=== PATIENT | male | born 2005 | race Caucasian/White ===

== ENCOUNTER → 2024-10-31 12:37 | Outpatient (REF) | payer OTHER, SELFPAY ==
--- NOTE | 2024-10-31 12:43 | CA_ITS ---
Transthoracic Echocardiogram Patient (Last, First, Middle): Bean Hou, Gender: Male Date of : 2005 Age: 19 Procedure Date: 10/31/2024 Procedure Type: Transthoracic Echocardiogram Location: OP Height: 180.34 cm Weight: 80.74 kg BSA: 2.01 m2 Heart Rate: bpm BP: 122 / 80 mmHg Nail Maker: JENS Referring MD: Sylvia Dockery MD Symptoms: R07.9 CHESTPAIN R55 SYNCOPE COLLAPSE Study Quality: Adequate with contrast ECG Rhythm: Sinus Conclusions: - The left ventricular systolic function is normal. The calculated ejection fraction is 60% by biplane method. - No obvious valvular pathology seen on this study. Findings Procedure Information Contrast agent, definity, is being given per protocol without apparent complications. Left Ventricle Normal left ventricular cavity size. There is normal left ventricular wall thickness. The left ventricular systolic function is normal. The calculated ejection fraction is 60% by biplane method. There is no evidence of regional wall motion abnormalities. Diastolic function is normal for age. Right Ventricle Normal right ventricular cavity size and systolic function. Atria The left atrium is mildly dilated. The right atrium is normal in size. Aortic Valve There is a normal trileaflet aortic valve. There is no aortic valve stenosis. There is no aortic valve regurgitation. Mitral Valve The mitral valve appears normal. There is trace mitral valve regurgitation. There is no mitral valve stenosis. Pulmonic Valve There is trace to mild pulmonic valve regurgitation. Tricuspid Valve There is trace tricuspid valve regurgitation. There is no evidence of pulmonary hypertension. Great Vessels The asc aorta is normal in size. Venous The inferior vena cava is mildly dilated and collapses greater than 50% with inspiration. Pericardium/Pleural There is no evidence of pericardial effusion. Prior Study Comparison No prior study available for comparison. Recommendations, Care & Conclusions No obvious valvular pathology seen on this study. Measurements 2D Linear Measurements IVSd: 0.79 0.6-0.9/0.6-1.0 cm LVIDd: 5.59 3.9-5.3/4.2-5.9 cm LVIDd Index: 2.78 2.4-3.2/2.2-3.1 cm/m2 LVIDs: 3.59 2.0-3.6 cm LVPWd: 0.87 0.7-1.1 cm LA Diam: 3.60 2.7-3.8/3.0-4.0 cm LAIDs Index: 1.79 1.5-2.3 cm/m2 LV Mass: 214.66 67-162/88-224 g LV Mass Index: 106.79 43-95/49-115 g/m2 LVOT Diam: 2.20 3.0+(-)1.3 cm 2D Systolic Function EF 4C: 57.60 >55% EF 2C: 63.50 >55% EF BiP: 59.90 >55% Mitral Valve MV Pk E: 1.09 MV PK A: 0.50 MV Decel Time: 248.00 E/A: 2.20 E'Lateral: 16.20 E'Medial: 10.80 E/E' Med: 10.10 E/E' Lat: 6.70 PHT: 73.00 MVA PHT: 3.01 Decel [place]: 4.39 Aortic Valve AoV Pk Henry: 1.51 AoV Mn Henry: 1.02 AoV VTI: 0.39 AoV Pk Grad: 9.00 Aov Mn Grad: 5.00 CAROL ANN Cont.VTI: 2.65 LVOT LVOT Pk Henry: 1.21 LVOT Mn Henry: 0.77 LVOT VTI: 0.27 LVOT Pk Grad: 6.00 LVOT Mn Grad: 3.00 LVOT Diam: 2.20 LVOT Area: 3.80 Diastolic Function MV Pk E: 1.09 MV Pk A: 0.50 E/A: 2.20 E'Medial: 10.80 E/E' Med: 10.10 E' Laterial: 16.20 E/E' Lat: 6.70 Right Ventricle TAPSE (mm): 31.60 TVS' Henry: 14.60 Tricuspid Valve TR Pk Henry: 1.90 TR Pk Grad: 14.00 RA Press: 3.00 RVSP: 17.00 Great Vessels Aorta Sinus of Valsalva: 3.18 2.0-3.[address] [place]: 2.23 1.7-3.4 cm Ao Asc: 2.80 2.1-3.4 cm Ao Arch: 2.20 Updated in Other Vendor System with Status of Final Papito Rosenthal MD electronically signed on 10/31/2024 3:23:03 PM with status of Final
== END ==
LOC: HO.CARD 12:37
PROVIDERS: Visit Provider Student in an Organized Health Care Education/Training Program
DX: R55 Syncope and collapse (principal); R07.9 Chest pain, unspecified
CPT/HCPCS: 93306; Q9957

== ENCOUNTER → 2024-10-31 12:43 | Outpatient (BNV) | payer OTHER, SELFPAY | PROVIDERS: Visit Provider Internal Medicine | DX: I37.1 Nonrheumatic pulmonary valve insufficiency (principal); I51.7 Cardiomegaly | CPT/HCPCS: 93306 ==